=== PATIENT | male | born 1990 ===

== ENCOUNTER 2018-05-16 13:18 | Emergency (ER) | payer OTHER ==
[2018-05-16 13:40] VITALS: BP 143/90
--- NOTE | 2018-05-16 14:31 | UC ---
Skin Complaint HPI - HPI Summary HPI Summary: 28 yo male with cystic tender region noted above left eye brow x 3 mos not increasing in size no f/c - History of Current Complaint Chief Complaint: UCHeadache Time Seen by Provider: 05/16/18 14:21 Stated Complaint: FACE COMPLAINT Hx Obtained From: Patient Onset/Duration: Gradual Onset, Lasting Weeks Timing: Constant Onset Severity: Mild Current Severity: Mild Pain Intensity: 4 - when touching Pain Scale Used: 0-10 Numeric Location: Face Character: Raised, Painful Aggravating Factor(s): Touch Alleviating Factor(s): Nothing - Allergy/Home Medications Allergies/Adverse Reactions: Allergies Allergy/AdvReac Type Severity Reaction Status Date / Time No Known Allergies Allergy Verified 05/16/18 13:41 Home Medications: Home Medications NK [No Home Medications Reported] 05/16/18 [History Confirmed 05/16/18] PMH/Surg Hx/FS Hx/Imm Hx Previously Healthy: Yes - Surgical History Surgical History: Yes Surgery Procedure, Year, and Place: small intestine hernia - Family History Known Family History: Negative: Cardiac Disease, Hypertension, Diabetes - Social History Alcohol Use: Rare Substance Use Type: None Smoking Status (MU): Light Every Day Tobacco Smoker Review of Systems All Other Systems Reviewed And Are Negative: Yes Constitutional: Positive: Negative Skin: Positive: Negative Eyes: Positive: Negative ENT: Positive: Negative Respiratory: Positive: Negative Cardiovascular: Positive: Negative Gastrointestinal: Positive: Negative Genitourinary: Positive: Negative Motor: Positive: Negative Neurovascular: Positive: Negative Musculoskeletal: Positive: Negative Neurological: Positive: Negative Psychological: Positive: Negative Physical Exam Triage Information Reviewed: Yes Appearance: Well-Appearing, No Pain Distress, Well-Nourished Vital Signs: Initial Vital Signs Temp 99.2 F 05/16/18 13:35 Pulse 67 05/16/18 13:35 Resp 16 05/16/18 13:35 BP 143/90 05/16/18 13:35 Pulse Ox 99 05/16/18 13:35 Vital Signs Reviewed: Yes Eyes: Positive: Conjunctiva Clear ENT: Positive: Hearing grossly normal. Negative: Nasal congestion, Nasal drainage, Trismus, Muffled voice, Hoarse voice Neck: Positive: Nontender, No Lymphadenopathy Respiratory: Positive: Lungs clear, Normal breath sounds, No respiratory distress, No accessory muscle use Cardiovascular: Positive: RRR, No Murmur Musculoskeletal: Positive: ROM Intact, No Edema Neurological: Positive: Alert Psychological Exam: Normal Skin Exam: Other - see image Images Head: 1 - minute papule vs cyst, ?pore Course/Dx - Course Course Of Treatment: ? epidermal inclusion cyst above left eyebrow - Diagnoses Provider Diagnosis: Epidermal cyst of face Discharge - Sign-Out/Discharge Documenting (check all that apply): Patient Departure All imaging exams completed and their final reports reviewed: No Studies - Discharge Plan Condition: Stable Disposition: HOME Patient Education Materials: Epidermal Inclusion Cysts (ED) Referrals: Zoë Meng [Medical Doctor] - 2 Weeks Additional Instructions: Don't squeeze Please call intake assessor and ask for first available appt - Billing Disposition and Condition Condition: STABLE Disposition: Home
== END 2018-05-16 14:38 | disposition home or self-care (01) ==
LOC: UCEAST 13:18
DX: L72.8 Other follicular cysts of the skin and subcutaneous tissue (principal); F17.200 Nicotine dependence, unspecified, uncomplicated
CPT/HCPCS: 99201; G0463